=== PATIENT | female | born 1935 | race Caucasian/White ===

== ENCOUNTER 2021-02-13 13:01 | Emergency (ER) | payer MEDICARE ==
[~2021-02-13] VITALS: Ht 167.6 cm; Wt 86.4 kg
[2021-02-13 15:08] VITALS: BP 141/74
== END 2021-02-13 15:37 | disposition home or self-care (01) ==
LOC: EMS 13:01
DX: S00.83XA Contusion of other part of head, initial encounter (principal); S70.12XA Contusion of left thigh, initial encounter; Z90.710 Acquired absence of both cervix and uterus; Z90.89 Acquired absence of other organs; Z88.0 Allergy status to penicillin; W18.09XA Striking against other object with subsequent fall, initial encounter; Y93.89 Activity, other specified; Y92.89 Other specified places as the place of occurrence of the external cause; Y99.8 Other external cause status
CPT/HCPCS: 70450; 70486; 99285

== ENCOUNTER 2022-02-05 16:10 | Emergency (ER) | payer MEDICARE ==
[~2022-02-05] VITALS: Ht 167.6 cm; Wt 79.5 kg
[2022-02-05 17:28] LABS: BASOPHILS % (AUTO) 0.6 % (0.0-2.0); EOSINOPHILS % (AUTO) 1.7 % (1.0-6.0); HEMATOCRIT 35.2 % (36-46); HEMOGLOBIN 11.6 g/dL (12.0-16.0); LYMPHOCYTES # (AUTO) 3.6 K/uL (1.0-4.8); LYMPHOCYTES % (AUTO) 34.1 % (22.0-44.0); MEAN CORPUSCULAR HEMOGLOBIN 32.7 pg (26.0-34.0); MEAN CORPUSCULAR HGB CONC 33.1 G/dL (31.0-37.0); MEAN CORPUSCULAR VOLUME 99 fL (80-100); MONOCYTES # (AUTO) 1.5 K/uL (0.1-1.0); MONOCYTES % (AUTO) 14.3 % (2.0-9.0); NEUTROPHILS # (AUTO) 5.1 K/uL (1.8-7.7); NEUTROPHILS % (AUTO) 49.3 % (40.0-70.0); PLATELET COUNT (AUTO) 249 K/uL (150-450); RED BLOOD CELL COUNT(AUTO) 3.56 MIL/uL (4.00-5.20); RED CELL DISTRIBUTION WIDTH 17.3 % (11.5-14.5)
[2022-02-05 17:39] LABS: ANION GAP 5 mmol/L (8-16); CALCIUM, TOTAL 8.4 mg/dL (8.8-10.5); CARBON DIOXIDE 34 mmol/L (22-29); CHLORIDE 103 mmol/L (98-107); CREATININE 0.85 mg/dL (0.60-1.30); GLOMERULAR FILTR. RATE CALC > 60 mL/min (>60); GLUCOSE,RANDOM 104 mg/dL (70-110); POTASSIUM 3.4 mmol/L (3.5-5.1); SODIUM SERUM 142 mmol/L (136-145); UREA NITROGEN, BLOOD 12 mg/dL (7-18)
[2022-02-05 17:50] LABS: B-TYPE NATRIURETIC PEPTIDE 586 pg/mL (0-100)
[2022-02-05 17:51] LABS: COVID AG,FIA SOURCE NASOPHARYNGEAL
[2022-02-05 17:53] LABS: ALANINE AMINOTRANSFERASE 27 U/L (12-78); ALBUMIN 3.2 g/dL (3.4-5.0); ALKALINE PHOSPHATASE 56 U/L (46-116); ASPARTATE AMINOTRANSFERASE 32 U/L (15-37); BILIRUBIN,TOTAL 0.4 mg/dL (0.1-1.0); THYROID STIMULATING HORMONE 1.18 uIU/mL (0.36-3.74); TOTAL PROTEIN, SERUM 6.9 g/dL (6.4-8.2)
[2022-02-05 17:59] LABS: APPEARANCE,URINE HAZY (CLEAR); BILIRUBIN,URINE NEGATIVE (NEGATIVE); GLUCOSE, URINE (UA) NEGATIVE (NEGATIVE); KETONES,URINE NEGATIVE (NEGATIVE); LEUKOCYTE ESTERASE ,URINE MODERATE (NEGATIVE); NITRATE,URINE NEGATIVE (NEGATIVE); OCCULT BLOOD,URINE NEGATIVE (NEGATIVE); PH,URINE 7.5 (5.0-8.0); PROTEIN,URINE NEGATIVE (NEGATIVE); SPECIFIC GRAVITIY, URINE 1.007 (1.003-1.030); UROBILINOGEN,URINE <=1.0 mg/dL (<=1.0)
[2022-02-05 18:35] VITALS: BP 123/59
[2022-02-05] MEDS ORDERED: CEPH-558 PO (18:52)
[2022-02-05] MEDS ORDERED: COMP1EAC (18:58)
[2022-02-05] MEDS ORDERED: BUME1TAB34 PO (18:59)
[2022-02-05 19:02] LABS: BACTERIA,URINE Few /HPF (None Seen); RBC,URINE 0-2 /HPF (0-2); SQUAMOUS EPITHELIAL CELL,UR Rare /LPF (None Seen)
== END 2022-02-05 19:24 | disposition home or self-care (01) ==
LOC: EMS 16:11
DX: L03.116 Cellulitis of left lower limb (principal); L03.115 Cellulitis of right lower limb; I87.8 Other specified disorders of veins; L30.9 Dermatitis, unspecified; Z85.3 Personal history of malignant neoplasm of breast; Z86.79 Personal history of other diseases of the circulatory system; Z90.49 Acquired absence of other specified parts of digestive tract; Z90.710 Acquired absence of both cervix and uterus; Z90.11 Acquired absence of right breast and nipple; Z98.890 Other specified postprocedural states; Z88.0 Allergy status to penicillin; Z20.822 Contact with and (suspected) exposure to COVID-19
CPT/HCPCS: 71045; 80053; 81001; 83880; 84443; 84484; 85025; 87086; 93005; 99285; 36415-L1; 36415-TC

== ENCOUNTER 2023-01-18 18:50 | Emergency (ER) | payer MEDICARE ==
[~2023-01-18] VITALS: Ht 167.6 cm; Wt 75.0 kg
[~2023-01-18 18:50] MED LIST: BUME1TAB34 PO; CEPH-558 PO; COMP1EAC
[2023-01-18 20:45] LABS: APPEARANCE,URINE TURBID (CLEAR); BILIRUBIN,URINE NEGATIVE (NEGATIVE); GLUCOSE, URINE (UA) NEGATIVE (NEGATIVE); KETONES,URINE NEGATIVE (NEGATIVE); LEUKOCYTE ESTERASE ,URINE LARGE (NEGATIVE); NITRATE,URINE NEGATIVE (NEGATIVE); OCCULT BLOOD,URINE SMALL (NEGATIVE); PH,URINE 5.5 (5.0-8.0); PROTEIN,URINE 30-70 mg/dL (NEGATIVE); SPECIFIC GRAVITIY, URINE 1.004 (1.003-1.030); UROBILINOGEN,URINE <=1.0 mg/dL (<=1.0)
[2023-01-18] MEDS ORDERED: CLOTRIMAZOLE 1% 45 GM VAGINAL CREAM VG ONE (20:45)
[2023-01-18 21:12] LABS: BACTERIA,URINE Few /HPF (None Seen); RBC,URINE 0-2 /HPF (0-2); WBC,URINE >100 /HPF (0-5)
[2023-01-18] MEDS ORDERED: CLOT15CR29 TP (21:18)
[2023-01-18] MEDS ORDERED: LEVO750T68 PO (21:18)
[2023-01-18] MEDS ORDERED: LEVOFLOXACIN 250 MG TABLET PO ONE (21:30)
[2023-01-18 22:00] VITALS: BP 154/47
== END 2023-01-18 23:39 | disposition home or self-care (01) ==
LOC: EMS 18:51
DX: N39.0 Urinary tract infection, site not specified (principal); B37.31 Acute candidiasis of vulva and vagina; Z85.9 Personal history of malignant neoplasm, unspecified; Z90.49 Acquired absence of other specified parts of digestive tract; Z90.710 Acquired absence of both cervix and uterus; Z88.0 Allergy status to penicillin
CPT/HCPCS: 81001; 87086; 87186; 99283

== ENCOUNTER 2023-11-10 15:18 | Emergency (ER) | payer MEDICARE, OTHER ==
[~2023-11-10] VITALS: Ht 167.6 cm; Wt 70.5 kg
[~2023-11-10 15:18] MED LIST changes: +CLOT15CR29 TP; +LEVO750T68 PO
[2023-11-10 15:19] VITALS: TEMP 97.7
[2023-11-10 17:54] VITALS: BP 124/61; PULSE 64; RESP 18
== END 2023-11-10 17:56 | disposition home or self-care (01) ==
LOC: EMS 15:18
DX: H61.23 Impacted cerumen, bilateral (principal); Z90.49 Acquired absence of other specified parts of digestive tract; Z90.710 Acquired absence of both cervix and uterus; Z90.89 Acquired absence of other organs; Z98.890 Other specified postprocedural states; Z88.0 Allergy status to penicillin
CPT/HCPCS: 99282; Z7502

== ENCOUNTER 2024-04-20 09:06 | Emergency (ER) | payer MEDICARE, OTHER ==
[~2024-04-20] VITALS: Ht 170.2 cm; Wt 75.0 kg
[~2024-04-20 09:06] MED LIST changes: -BUME1TAB34 PO; +BUME1TAB50 PO
[2024-04-20 09:12] VITALS: TEMP 97.5
[2024-04-20 09:51] LABS: BASOPHILS % (AUTO) 0.7 % (0.0-2.0); EOSINOPHILS % (AUTO) 0.3 % (1.0-6.0); HEMATOCRIT 39.1 % (36-46); LYMPHOCYTES # (AUTO) 1.9 K/uL (1.0-4.8); LYMPHOCYTES % (AUTO) 14.7 % (22.0-44.0); MEAN CORPUSCULAR HEMOGLOBIN 34.1 pg (26.0-34.0); MEAN CORPUSCULAR HGB CONC 33.3 G/dL (31.0-37.0); MEAN CORPUSCULAR VOLUME 103 fL (80-100); MONOCYTES # (AUTO) 1.2 K/uL (0.1-1.0); MONOCYTES % (AUTO) 9.6 % (2.0-9.0); NEUTROPHILS # (AUTO) 9.6 K/uL (1.8-7.7); NEUTROPHILS % (AUTO) 74.7 % (40.0-70.0); PLATELET COUNT (AUTO) 353 K/uL (150-450); RED BLOOD CELL COUNT(AUTO) 3.82 MIL/uL (4.00-5.20); RED CELL DISTRIBUTION WIDTH 17.7 % (11.5-14.5); WHITE BLOOD COUNT (AUTO) 12.8 K/uL (4.5-11.0)
[2024-04-20 10:04] LABS: ANION GAP 10 mmol/L (8-16); CALCIUM, TOTAL 8.6 mg/dL (8.8-10.5); CARBON DIOXIDE 24 mmol/L (22-29); CHLORIDE 99 mmol/L (98-107); CREATININE 0.62 mg/dL (0.60-1.30); GLOMERULAR FILTR. RATE CALC > 60 mL/min (>60); GLUCOSE,RANDOM 113 mg/dL (70-110); LIPASE 37 U/L (16-77); POTASSIUM 4.3 mmol/L (3.5-5.1); SODIUM SERUM 133 mmol/L (136-145); UREA NITROGEN, BLOOD 8 mg/dL (7-18)
[2024-04-20] MEDS: SODIUM CHLORIDE 0.9% 500 ML IV ONE (10:11)
[2024-04-20] MEDS: ONDANSETRON HCL 4 MG/2 ML VIAL IVP ONE ×2 (10:11→12:29)
[2024-04-20 10:21] LABS: TROPONIN I-HIGH SENSITIVITY 12 ng/L (<51)
[2024-04-20 10:38] LABS: ALANINE AMINOTRANSFERASE 130 U/L (12-78); ALBUMIN 2.7 g/dL (3.4-5.0); ALKALINE PHOSPHATASE 323 U/L (46-116); ASPARTATE AMINOTRANSFERASE 203 U/L (15-37); BILIRUBIN,TOTAL 8.3 mg/dL (0.1-1.0); TOTAL PROTEIN, SERUM 7.8 g/dL (6.4-8.2)
[2024-04-20] MEDS: DiphenhydrAMINE HCL 50 MG/ML VIAL IVP ONE (10:59)
[2024-04-20] MEDS: PIPERACILLIN/TAZO 3.375 GM/D5W 50 ML IV ONE (10:59)
[2024-04-20] MEDS: FentaNYL CITRATE PF 100 MCG/2 ML VIAL IVP ONE (12:29)
[2024-04-20 12:55] LABS: RBC MORPHOLOGY COMMENT ABNORMAL RBC MORPH
[2024-04-20] MEDS: MORPHINE SULFATE 2 MG/ML SYRINGE IVP ONE (14:10)
[2024-04-20 14:37] VITALS: BP 133/68; PULSE 70; RESP 16
== END 2024-04-20 15:26 | disposition short-term general hospital (02) ==
LOC: EMS 09:06
DX: D72.829 Elevated white blood cell count, unspecified (principal); Z90.49 Acquired absence of other specified parts of digestive tract; Z90.710 Acquired absence of both cervix and uterus; Z90.11 Acquired absence of right breast and nipple; Z88.0 Allergy status to penicillin
CPT/HCPCS: 99285; 96365; 96375; 76700; 80048; 80076; 83690; 84484; 85025; 93005; J1200; J3010; J2270; J2405; J2543; J7040